=== PATIENT | male | born 1945 | race African-American/Black ===

== ENCOUNTER → 2019-06-30 | Outpatient (CLI) | payer OTHER ==
--- NOTE | 2019-06-30 11:59 | KCIC ---
Bone densitometry 06/30/2019 11:40 AM Indication: prostate cancer. Comparison Study: none. Discussion: Bone Densitometry was performed with dual photon absorption of the lumbar spine and proximal left femur. Lumbar Spine: Bone average density is 1.004g/cm2 for L1-L4. T-Score is -0.8. Left proximal femur: Bone average density is 1.042g/cm2. T-Score is 0.1. IMPRESSION: Normal bone mineral density Note: Definitions established by the World Health Organization: Normal: T-score is -1.0 or above. Osteopenia: T-score is between -1.0 and -2.5. Osteoporosis: T-score is -2.5 or below. Electronically signed by: Adonay Joy MD (06/30/2019 11:56 AM) [id number]
== END | disposition home or self-care (01) ==
LOC: KCIC DEXA 11:09
PROVIDERS: ATTEND Internal Medicine Hematology & Oncology
DX: C61 Malignant neoplasm of prostate (principal)
CPT/HCPCS: 77080